=== PATIENT | female | born 2000 ===

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

== ENCOUNTER 2020-09-19 09:57 | Emergency (ER) | payer OTHER ==
[~2020-09-19] VITALS: Ht 175.3 cm; Wt 95.3 kg
[2020-09-19] MEDS ORDERED: PROVIGIL200 MG (10:35)
== END 2020-09-19 15:01 | disposition home or self-care (01) ==
LOC: ER 09:57 → EMR PED 09:57 → EDSEX 10:16 → EMR PED 15:01
DX: R00.2 Palpitations (principal); Z03.818 Encounter for observation for suspected exposure to other biological agents ruled out; R07.89 Other chest pain

== ENCOUNTER 2021-06-20 18:26 | Emergency (ER) | payer OTHER ==
[~2021-06-20] VITALS: Ht 167.6 cm; Wt 113.4 kg
[~2021-06-20 18:26] MED LIST: PROVIGIL200 MG
== END 2021-06-20 19:42 | disposition home or self-care (01) ==
LOC: ER 18:26 → EMR PED 18:26 → ER 19:21
DX: S61.419A Laceration without foreign body of unspecified hand, initial encounter (principal); W45.8XXA Other foreign body or object entering through skin, initial encounter; Y93.89 Activity, other specified; Y92.010 Kitchen of single-family (private) house as the place of occurrence of the external cause

== ENCOUNTER 2021-10-23 14:40 | Emergency (ER) | payer OTHER ==
[~2021-10-23] VITALS: Ht 175.3 cm; Wt 104.3 kg
== END 2021-10-23 17:55 | disposition home or self-care (01) ==
LOC: ER 14:40
DX: T14.90XA Injury, unspecified, initial encounter (principal); V49.9XXA Car occupant (driver) (passenger) injured in unspecified traffic accident, initial encounter; Y93.9 Activity, unspecified; Y92.488 Other paved roadways as the place of occurrence of the external cause; M62.838 Other muscle spasm

== ENCOUNTER 2021-10-31 08:48 | Emergency (ER) | payer OTHER ==
[~2021-10-31] VITALS: Ht 175.3 cm; Wt 104.3 kg
== END 2021-10-31 10:18 | disposition home or self-care (01) ==
LOC: ER 08:48
DX: R07.89 Other chest pain (principal); T40.5X5A Adverse effect of cocaine, initial encounter; Y92.9 Unspecified place or not applicable